=== PATIENT | female | born 1940 | race Two or more races ===

== ENCOUNTER 2017-09-23 19:42 | Inpatient (IN) | payer OTHER ==
[~2017-09-23] VITALS: Ht 142.2 cm; Wt 69.4 kg
--- NOTE | 2017-09-23 22:25 | NUR ---
RN ADMITTING NOTE PATIENT BROUGHT INTO THE UNIT VIA GURNEY, ACCOMPANIED BY 3 PERSONNEL OF [facility]. PATIENT IS [place] SPEAKING, ALERT AND ORIENTED X 3, VERBALLY RESPONSIVE AND IS ABLE TO MAKE NEEDS KNOWN. NOTED PATIENT RECEIVING O2 VIA NC @2LPM, O2 SAT @ 98%, VITAL SIGNS WNL, NOTED WITH SOB UPON EXERTION, IN NO ACUTE DISTRESS ADN WITH NO C/O PAIN AT THIS TIME. REPORT RECEIVED THAT PATIENT CAME FROM [facility], PER [facility], PATIENT'S DAUGHTER, FAVIAN WILL COME TO THE HOSPITAL IN THE MORNING, FAVIAN'S PHONE NUMBER IS [phone]. ORIENTED PATIENT TO UNIT, ROOM, CALL LIGHT AND USE OF CALL LIGHT, VERBALIZED UNDERSTANDING. ALL PATIENT'S NEEDS ATTENDED TO AT THIS TIME, PT AWARE OF SAFETY NEEDS. BED PLACED IN LOW POSITION AND LOCKED IN PLACE. CALL LIGHT PLACED WITHIN EASY REACH. DR. PEDRITO ARVIZU, [employer] MD,PAGED FOR ADMISSION ORDERS, AWAITING FOR CALL BACK.
[2017-09-23 22:30] VITALS: BP 130/68
[2017-09-23] MEDS ORDERED: ALBU2.5V38 NEB (22:57)
[2017-09-23] MEDS ORDERED: SITA1TAB6 PO (22:57)
[2017-09-23] MEDS ORDERED: PRED50TA PO (22:57)
[2017-09-23] MEDS ORDERED: PRAV20TA4 PO (22:57)
[2017-09-23] MEDS ORDERED: LOSA50TA21 PO (22:57)
[2017-09-23 23:00] VITALS: BP 133/72
[2017-09-23] MEDS ORDERED: ALBU18HF2 INH (23:19)
[2017-09-23] MEDS ORDERED: AMLO2.5T2 PO (23:28)
[2017-09-24] MEDS ORDERED: VANCOMYCIN 1 GM in IV D5W 250 ML IV ONE (01:00)
[2017-09-24] MEDS ORDERED: IPRATROPIUM NEB FS 0.5 MG/2.5 ML AMPUL.NEB NEB PRN (01:00)
[2017-09-24] MEDS ORDERED: ACETAMINOPHEN 325 MG TABLET PO PRN (01:00)
[2017-09-24] MEDS ORDERED: INSULIN REGULAR, HUMAN 100 UNIT/ML 3 ML VIAL SQ PRN (01:00)
[2017-09-24] MEDS ORDERED: DEXTROSE 50%-WATER 50 ML DISP.SYRIN IV PRN ×2 (01:00→12:00)
[2017-09-24] MEDS ORDERED: VANCOMYCIN 1 GM VIAL ONE (01:18)
[2017-09-24] MEDS ORDERED: PIPERACILLIN /TAZOBACTAM 3.375 G VIAL IV ONE (01:18)
[2017-09-24] MEDS: ALBUTEROL FS 2.5 MG/0.5 ML VIAL.NEB NEB SCH ×4 (01:54→19:25)
[2017-09-24 01:56] LABS: IRON, SERUM 20 ug/dl (50-175); TOTAL IRON BINDING CAPACITY 229 ug/dl (250-450)
[2017-09-24] MEDS ORDERED: PIPERACILLIN /TAZOBACTAM 3.375 G in IV D5W 50 ML IV SCH ×2 (02:00→06:00)
[2017-09-24] MEDS ORDERED: AMLODIPINE BESYLATE 2.5 MG TABLET ONE (02:00)
[2017-09-24] MEDS: AMLODIPINE BESYLATE 2.5 MG TABLET PO SCH ×2 (02:24→09:29)
[2017-09-24 04:00] VITALS: BP 129/67
[2017-09-24 04:14] LABS: ABG BASE EXCESS 1.5 mmol/L; ABG OXYGEN SATURATION 96.4 % (92.0-98.5); ABG PCO2 37.4 mmHg (35.0-45.0); ABG PH 7.449 (7.350-7.450); ABG PO2 89.4 mmHg (75.0-100.0); AaDO2 66.1 mmHg; COHb 0.3 % (0.5-1.5); MetHb 0.8 % (0.0-1.5); O2Hb 95.3 % (94.0-97.0); SITE, ABG Right Radial; VENT MODE, BG 28%
--- NOTE | 2017-09-24 05:30 | NUR ---
RN NOTE PATIENT IN BED, ASLEEP BUT EASILY AWOKEN, ALERT AND ORIENTED X 4, IN NO ACUTE DISTRESS, CONTINUES TO RECEIVE O2 VIA NC @ 2LPM. CALL LIGHT PLACED WITHIN EASY REACH. WILL CONTINUE TO MONITOR PATIENT.
--- NOTE | 2017-09-24 05:45 | NUR ---
RN NOTE PATIENT'S BLOOD SUGAR = 533MG/DL, STAT RANDOM BLOOD GLUCOSE ORDER PLACED. PATIENT ALERT AND ORIENTED X 3 AND IS IN NO ACUTE DISTRESS. STOCK CONTROL SUPERVISOR MD PAGED, AWAITING FOR CALL BACK.
--- NOTE | 2017-09-24 07:00 | NUR ---
RN CLOSING NOTES PATIENT IN BED, ASLEEP BUT CAN BE EASILY AWOKEN, ALERT AND ORIENTED X 4, VERBALLY RESPONSIVE, NO C/O PAIN AT THIS TIME, IN NO ACUTE DISTRESS. CONTINUES TO RECEIVE O2 VIA NC @ 2LPM, O2 SAT @ 95% ALL PATIENT'S NEEDS ATTENDED TO. DVT PUMPS IN PLACE, CALL LIGHT PLACED WITHIN EASY REACH. WILL ENDORSE TO AM SHIFT NURSE FOR CONTINUITY OF CARE.
[2017-09-24] MEDS ORDERED: BLOOD SUGAR DIAGNOSTIC 1 EACH STRIP IN SCH (07:30)
--- NOTE | 2017-09-24 08:00 | NUR ---
MS RN NOTES PATIENT IN BED RESTING NO SOB OR ACUTE DISTRESS NOTED. PATIENT ALERT, ORIENTED X4 MAORI SPEAKING. PERIPHERAL IV INTACT PATENT. BED IN LOW LOCKED POSITION. CALL LIGHT WITHIN REACH. PATIENT NOTED WITH COUGH. WITH NORMAL NONE LABORED BREATHING. ON 2L OXYGEN VIA NASAL CANNULA. WILL CONTINUE TO MONITOR.
[2017-09-24 08:30] VITALS: BP 133/78
[2017-09-24] MEDS ORDERED: ALBUTEROL FS 2.5 MG/0.5 ML VIAL.NEB ONE (08:54)
[2017-09-24] MEDS: PANTOPRAZOLE 40 MG VIAL IV SCH (09:27)
[2017-09-24] MEDS: LOSARTAN POTASSIUM 50 MG TABLET PO SCH (09:29)
[2017-09-24] MEDS: methylPREDNISolone SOD SUCC 40 MG/ML VIAL IV SCH ×3 (09:29→17:09)
[2017-09-24] MEDS ORDERED: MORPHINE SULFATE INJ 4 MG/ML DISP.SYRIN IV PRN (09:30)
[2017-09-24] MEDS ORDERED: FEE PK DOSING 1 MIN EA MC ONE (09:47)
[2017-09-24] MEDS: PIPERACILLIN /TAZOBACTAM 3.375 G in IV D5W 50 ML IV SCH ×4 (10:20→23:48)
--- NOTE | 2017-09-24 11:40 | NUR ---
WELD TECHNICIAN NOTES PATIENT NOTED WITH BG OF 483MG/DL PATIENT ASYMPTOMATIC DENIA CALLE NOTIFIED ORDERS TO CHANGE SLIDING SCALE FROM MILD TO MOD. PATIENT ALSO SEEN AND EVALUATED BY DENIA CALLE ORDERS NOTED AND CARRIED OUT.
[2017-09-24] MEDS ORDERED: TEMAZEPAM 7.5 MG CAPSULE PO PRN ×2 (12:00→20:00)
[2017-09-24] MEDS: VANCOMYCIN 0.75 GM in IV D5W 250 ML IV SCH (12:01)
[2017-09-24] MEDS: BLOOD SUGAR DIAGNOSTIC 1 EACH STRIP VI SCH ×3 (12:02→21:21)
[2017-09-24] MEDS: INSULIN REGULAR, HUMAN 100 UNIT/ML 3 ML VIAL SQ PRN ×2 (12:03→17:09)
--- NOTE | 2017-09-24 15:03 | NUR ---
Spoke with daughter Yeny, patient lives with daughter Yeny and Janeth in the second floor apartment. Patient speaks Mosotho only; she ambulate with a cane, semi-independent with adl's. Has no homehealth reported. Family are involved and supportive, daughter will provide ride home once discharge. Addendum: 09/24/17 at 1503 by TULIO MUÑIZ RN Amended: Links added.
[2017-09-24 16:00] VITALS: BP 123/63
--- NOTE | 2017-09-24 17:15 | NUR ---
MS RN NOTES PATIENTS BLOOD SUGAR NOTED 447MG/DL INSULIN ADMINISTERED PER SLIDING SCALE. DENIA CALLE NOTIFIED OF GLUCOSE LEVEL STATES WILL COME TO EVALUATE PATIENT.
--- NOTE | 2017-09-24 17:20 | NUR ---
MS RN NOTES DENIA PICKARD WIND TURBINE MECHANICAL ENGINEER REVIEWED PATIENTS LABS ORDERED LEVAMIR 10 UNITS QHS. ORDERS NOTED AND CARRIED OUT.
--- NOTE | 2017-09-24 18:39 | NUR ---
MS RN NOTES PATIENT IN BED ALERT, ORIENTED X4 FAMILY AT BEDSIDE. NO SOB OR ACUTE DISTRESS NOTED. ALL DUE MEDICATIONS ADMINISTERED. ALL NEEDS MET. PERIPHERAL IV ON LEFT HAND INTACT PATENT. BED IN LOW LOCKED POSITION. CALL LIGHT WITHIN REACH. WILL ENDORSE ELISA TO PM SHIFT.
--- NOTE | 2017-09-24 19:05 | NUR ---
RN OPENING NOTES PT RESTING IN BED. FAMILY AT BEDSIDE. NO COMPLAINTS OF PAIN OR DISTRESS AT THIS TIME. PT HAS A LEFT HAND #22 IV, INTACT AND PATENT. SAFETY PRECAUTIONS IN PLACE, BED IN LOW LOCKED POSITION, [id number] UP CALL LIGHT WITHIN REACH. WILL CONTINUE TO MONITOR.
[2017-09-24 20:28] VITALS: BP 126/78
[2017-09-24] MEDS ORDERED: IV NS 0.9% 1,000 ML BAG IV PRN (20:30)
[2017-09-24] MEDS: IV NS 0.9% 1,000 ML IV PRN (21:21)
[2017-09-24] MEDS: *INSULIN REGULAR(HUMULIN R)HUM 100 UNIT/ML VIAL SQ PRN (21:26)
[2017-09-24] MEDS: INSULIN DETEMIR 100 UNIT/ML CARTRIDGE SQ SCH (21:28)
[2017-09-25] MEDS: VANCOMYCIN 0.75 GM in IV D5W 250 ML IV SCH ×2 (00:57→13:12)
[2017-09-25] MEDS: ALBUTEROL FS 2.5 MG/0.5 ML VIAL.NEB NEB SCH ×4 (02:20→19:28)
[2017-09-25] MEDS: PIPERACILLIN /TAZOBACTAM 3.375 G in IV D5W 50 ML IV SCH ×3 (06:15→17:51)
[2017-09-25] MEDS: BLOOD SUGAR DIAGNOSTIC 1 EACH STRIP VI SCH ×4 (06:15→21:57)
[2017-09-25] MEDS: INSULIN REGULAR, HUMAN 100 UNIT/ML 3 ML VIAL SQ PRN ×2 (06:29→17:10)
[2017-09-25 06:39] LABS: HEMATOCRIT 31 % (33-45); HEMOGLOBIN 10.8 g/dL (11.5-14.8); LYMPHOCYTES # (AUTO) 0.8 /CMM (0.8-4.8); LYMPHOCYTES % (AUTO) 8.2 % (20.0-44.0); MEAN CORPUSCULAR HEMOGLOBIN 30 PG (26.0-33.0); MEAN CORPUSCULAR HGB CONC 35 g/dl (31.0-36.0); MEAN CORPUSCULAR VOLUME 87 fL (82-100); MONOCYTES # (AUTO) 0.3 /CMM (0.1-1.30); MONOCYTES % (AUTO) 3.5 % (2.0-12.0); NEUTROPHILS # (AUTO) 8.4 /CMM (1.8-8.9); NEUTROPHILS % (AUTO) 88.3 % (43.0-81.0); PLATELET COUNT (AUTO) 167 /CMM (150-450); RDW COEFFICIENT OF VARIATION 16.5 (11.5-15.0); RED BLOOD CELL COUNT(AUTO) 3.61 MIL/uL (4.0-5.2); WHITE BLOOD COUNT (AUTO) 9.5 K/uL (4.3-11.0)
--- NOTE | 2017-09-25 06:53 | NUR ---
RN CLOSING NOTES PT RESTING IN BED. NO COMPLAINTS OF PAIN OR DISTRESS AT THIS TIME. PT HAS A LEFT HAND #22 IV RUNNING NS @75ML/HR, INTACT AND PATENT. SAFETY PRECAUTIONS IN PLACE, BED IN LOW LOCKED POSITION, [id number] UP CALL LIGHT WITHIN REACH. ALL PATIENT NEEDS MET. WILL ENDORSE TO DAY SHIFT NURSE FOR CONTINUITY OF CARE.
[2017-09-25 07:05] LABS: TROPONIN I < 0.017 ng/mL (0.00-0.056)
[2017-09-25 07:09] LABS: ALANINE AMINOTRANSFERASE 29 U/L (12-78); ALBUMIN 2.3 g/dL (3.4-5.0); ALKALINE PHOSPHATASE 62 U/L (46-116); ASPARTATE AMINOTRANSFERASE 17 U/L (15-37); BILIRUBIN,TOTAL 0.3 mg/dL (0.2-1.0); CALCIUM, SERUM 8.6 mg/dL (8.5-10.1); CARBON DIOXIDE 25 mmol/L (21-32); CHLORIDE 105 mmol/L (98-107); CREATININE 0.8 mg/dL (0.6-1.3); GLUCOSE 305 mg/dL (74-106); POTASSIUM 3.7 mmol/L (3.5-5.1); SODIUM SERUM 141 mmol/L (136-145); UREA NITROGEN, BLOOD 24 mg/dL (7-18)
[2017-09-25 07:14] LABS: CREATINE KINASE MB 0.6 ng/mL (0-3.6)
[2017-09-25 08:10] VITALS: BP 115/81
[2017-09-25] MEDS: methylPREDNISolone SOD SUCC 40 MG/ML VIAL IV SCH ×3 (08:23→17:12)
[2017-09-25] MEDS: PANTOPRAZOLE 40 MG VIAL IV SCH (08:23)
[2017-09-25] MEDS: LOSARTAN POTASSIUM 50 MG TABLET PO SCH (08:24)
[2017-09-25] MEDS: AMLODIPINE BESYLATE 2.5 MG TABLET PO SCH (08:25)
--- NOTE | 2017-09-25 09:47 | NUR ---
RN OPENING NOTES. PT RECEIVED A&0X3 RESTING IN BED, PT WOLOF SPEAKING. PT TOLERATING ROOM AIR WITHOUT SOB AND SAO2 WNL AT 96%. PT REPORTING MINOR GENERALIZED PAIN AND TYLENOL PRN ADMIN. BED IN LOWEST LOCKED POSITION WITH HANDRAILSX2 AND CALL KENNEDY WITHIN REACH. PT BRIEFED ON TODAY'S POC AND IS WITHOUT CONCERN OR COMPLAINT AT THIS TIME.
[2017-09-25] MEDS: *INSULIN REGULAR(HUMULIN R)HUM 100 UNIT/ML VIAL SQ PRN ×2 (12:11→22:03)
--- NOTE | 2017-09-25 17:51 | NUR ---
RN NOTES. IVC AT L HAND, NON FUNCTIONAL, REMOVED.
--- NOTE | 2017-09-25 19:03 | NUR ---
RN CLOSING NOTES. PT REMAINS A&0X3 RESTING IN BED WITH FAMILY AT BEDSIDE, PT YAKUT SPEAKING. PT TOLERATING ROOM AIR WITHOUT SOB AND SAO2 WNL . PT DENIES PAIN. P WITH IVC AT RIGHT AC INTACT AND OPERATIONAL. BED IN LOWEST LOCKED POSITION WITH HANDRAILSX2 AND CALL KENNEDY WITHIN REACH. ALL DAY NURSE DUTIES ATTENDED TO, PT IS WITHOUT CONCERN OR COMPLAINT AT THIS TIME. WILL ENDORSE TO NIGHT NURSE.
[2017-09-25 19:12] VITALS: BP 145/81
--- NOTE | 2017-09-25 19:20 | NUR ---
MS RN NOTES RECEIVED PT IN BED, AWAKE, A/O X 3 [place] SPEAKING, WATCHING TV AT THIS TIME. DAUGHTER AND AT BEDSIDE. NO DISTRESS, NO SOB NOTED. ON 02 @ 2LPM VIA NC DULCE WELL. IV SITE ON RAC INTACT AND PATENT, NO S/S OF INFILTRATION NOTED. NO S/S OF HYPO/ HYPERGLYCEMIA NOTED. DENIES ANY PAIN OR DISCOMFORT AT AT THIS TIME. CALL LIGHT WITHIN REACH. WILL CONT TO MONITOR.
[2017-09-25 20:00] VITALS: BP 138/81
[2017-09-25] MEDS ORDERED: ATORVASTATIN 10 MG TABLET PO SCH (22:00)
[2017-09-25] MEDS: INSULIN DETEMIR 100 UNIT/ML CARTRIDGE SQ SCH (22:02)
[2017-09-26] MEDS: PIPERACILLIN /TAZOBACTAM 3.375 G in IV D5W 50 ML IV SCH ×2 (00:21→06:06)
[2017-09-26] MEDS ORDERED: VANCOMYCIN 1 GM in IV D5W 250 ML IV SCH (01:00)
[2017-09-26] MEDS: ALBUTEROL FS 2.5 MG/0.5 ML VIAL.NEB NEB SCH ×2 (01:39→07:19)
[2017-09-26] MEDS: IV NS 0.9% 1,000 ML IV PRN (04:47)
[2017-09-26] MEDS: BLOOD SUGAR DIAGNOSTIC 1 EACH STRIP VI SCH (05:57)
[2017-09-26] MEDS: INSULIN REGULAR, HUMAN 100 UNIT/ML 3 ML VIAL SQ PRN (06:01)
--- NOTE | 2017-09-26 06:31 | NUR ---
MS RN NOTES PT IN BED, RESTING COMFORTABLY AT THIS TIME, AROUSES EASILY. A/O X 3 MONGOLIAN SPEAKING. NO DISTRESS, NO SOB NOTED. ON 02 @ 2LPM VIA NC DULCE WELL. IV SITE ON RAC INTACT AND PATENT, NO S/S OF INFILTRATION NOTED. NO S/S OF HYPO/ HYPERGLYCEMIA NOTED. BS : [id number] AT THIS TIME, WITH INSULIN SS GIVEN ORDERED. SNACK PROVIDED TO PT. DENIES ANY PAIN OR DISCOMFORT AT AT THIS TIME. ALL NEEDS ATTENDED AND MET. SAFETY PRECAUTIONS OBSERVED. CALL LIGHT WITHIN REACH.
[2017-09-26 06:52] LABS: CALCIUM, SERUM 8.7 mg/dL (8.5-10.1); CARBON DIOXIDE 26 mmol/L (21-32); CHLORIDE 103 mmol/L (98-107); CREATININE 0.9 mg/dL (0.6-1.3); POTASSIUM 3.9 mmol/L (3.5-5.1); SODIUM SERUM 138 mmol/L (136-145); UREA NITROGEN, BLOOD 26 mg/dL (7-18)
[2017-09-26 06:58] LABS: GLUCOSE 401 mg/dL (74-106)
--- NOTE | 2017-09-26 07:15 | NUR ---
DENIA CALLE NP INFORMED REGARDING BS : 401, WITH NNO AT THIS TIME.
--- NOTE | 2017-09-26 07:35 | NUR ---
RN OPENING NOTES RECEIVED PT. IN BED A&OX3. PT. IS RECEIVING A BREATHING TREATMENT. BREATHING UNLABORED, AND EVENLY ON OXYGEN. NO S/S OF ACUTE DISTRESS. IV ACCESS ON RIGHT ANTECUBITAL SITE INTACT, IV FLUIDS RUNNING AT 75 ML/HR. WALKER AT BEDSIDE FOR ASSISTANCE ON AMBULATION. BED IS IN LOWEST, AND LOCKED POSITION, 2 SIDE RAILS UP, AND INSTRUCTED PT. TO USE CALL LIGHT FOR ASSISTANCE. ALL NEEDS MET. WILL CONTINUE TO ASSESS AND MONITOR.
[2017-09-26 08:00] VITALS: BP 130/61
[2017-09-26] MEDS: PANTOPRAZOLE 40 MG VIAL IV SCH (09:08)
[2017-09-26] MEDS: methylPREDNISolone SOD SUCC 40 MG/ML VIAL IV SCH (09:08)
[2017-09-26 09:10] VITALS: BP 130/61
[2017-09-26] MEDS: AMLODIPINE BESYLATE 2.5 MG TABLET PO SCH (09:10)
[2017-09-26] MEDS: LOSARTAN POTASSIUM 50 MG TABLET PO SCH (09:10)
[2017-09-26] MEDS ORDERED: FLU VACC QS 2017-18(36MOS+)/PF 0.5 ML DISP.SYRIN IM ONE (11:00)
[2017-09-26] MEDS ORDERED: PNEUMOCOCCAL 23-VAL P-SAC VAC 0.5 ML VIAL SQ ONE (11:00)
--- NOTE | 2017-09-26 11:42 | NUR ---
RN NOTES PNA VACCINE WAS ADMINISTERED.
--- NOTE | 2017-09-26 11:45 | NUR ---
RN NOTES DISCHARGE PT.'S FAMILY AT BESIDE. PT. AND PT.'S DAUGHTER WAS PROVIDE DISCHARGE INSTRUCTIONS, WITH EDUCATION, AND PT. VERBALIZED UNDERSTANDING. NEW MEDICATIONS EDUCATION GIVEN, AND UNDERSTANDING WAS VERBALIZED. ID BAND, AND IV WAS REMOVED WITHOUT COMPLICATIONS. FWW WAS BROUGHT TO PT.'S ROOM. ALL QUESTIONS ANSWERED.
--- NOTE | 2017-09-26 12:16 | NUR ---
ILLUMINATING ENGINEER PT. LEFT IN MEDICALLY STABLE CONDITION WITH FAMILY ALONG SIDE WITH DISCHARGE PACKET, FWW, AND PRESCRIPTION.
--- NOTE | 2017-09-26 14:00 | NUR ---
RN NOTES PT.'S PHARMACY CALLED TO CLARIFY PRESCRIPTION ORDERS. LET THE PHARMACIST KNOW THAT I WILL CONTACT THE [employer] TO CALL BACK TO CLARIFY ORDERS AND WROTE PHARMACY'S TELEPHONE NUMBER. CONTACTED THE [employer] TO NOTIFY THE PHARMACY'S.
== END 2017-09-26 11:45 | disposition home or self-care (01) | DRG 140 ==
LOC: TELE 22:17 → MED 09-24 11:11
PROVIDERS: ADMIT Internal Medicine; ATTEND Internal Medicine
DX: J44.0 Chronic obstructive pulmonary disease with (acute) lower respiratory infection (principal); N17.0 Acute kidney failure with tubular necrosis; J15.6 Pneumonia due to other Gram-negative bacteria; J15.9 Unspecified bacterial pneumonia; E11.65 Type 2 diabetes mellitus with hyperglycemia; E86.1 Hypovolemia; J44.1 Chronic obstructive pulmonary disease with (acute) exacerbation; E78.5 Hyperlipidemia, unspecified; I10 Essential (primary) hypertension; E87.1 Hypo-osmolality and hyponatremia; Z79.84 Long term (current) use of oral hypoglycemic drugs; Z79.899 Other long term (current) drug therapy; E66.9 Obesity, unspecified; Z68.34 Body mass index [BMI] 34.0-34.9, adult; J45.909 Unspecified asthma, uncomplicated
CPT/HCPCS: 36415; 36600; 71045-TC; 80048-TC; 80053-TC; 80202-TC; 82553-TC; 82803-TC; 82945-TC; 82962-TC; 83540-TC; 83605-TC; 84484-TC; 85025-TC; 85385-TC; 85610-TC; 85730-TC; 87040-TC; 87081-TC; 87086-TC; 90732; 94799-TC; C9113; J1815; J2543; J2920; J3370; J7030; J7050; J7060; Z7610